=== PATIENT | male | born 1995 | race Caucasian/White ===

== ENCOUNTER 2019-10-23 08:19 | Emergency (ER) | payer SELFPAY ==
[~2019-10-23] VITALS: Ht 182.9 cm; Wt 63.6 kg
[2019-10-23] MEDS ORDERED: ACETAMINOPHEN 325 MG TABLET PO ONE (09:30)
[2019-10-23 10:50] VITALS: BP 98/61
== END 2019-10-23 11:30 | disposition home or self-care (01) ==
LOC: EMS 08:26
DX: Z03.818 Encounter for observation for suspected exposure to other biological agents ruled out (principal); R09.1 Pleurisy; F17.210 Nicotine dependence, cigarettes, uncomplicated
CPT/HCPCS: 87635; 99406